=== PATIENT | female | born 1945 | race Caucasian/White ===

== ENCOUNTER → 2018-06-15 | Outpatient (CLI) | payer BC ==
[2018-06-15 16:50] LABS: Bilirubin, Urine Neg (Neg); Blood, Urine Neg (Neg); Glucose Qualitative, Urine Neg (Neg); Ketones, Urine Neg (Neg); Leukocyte Esterase, Urine 2+ (Neg); Nitrite, Urine Neg (Neg); Protein, Urine Neg (Neg); Specific Gravity, Urine 1.015 (1.003-1.022); Urobilinogen, Urine NORM (Normal)
[2018-06-15 17:12] LABS: Appearance, Urine Clear (Clear); Color, Urine Yellow (P-Yellow)
[2018-06-15 17:13] LABS: Red Blood Cells, Urine 0-2 /hpf (0-2); Transitional Epithelial Cells Few /hpf (0-Rare)
[2018-06-15 17:14] LABS: Bacteria Few /hpf; Renal Epithelial Few /hpf (0-Rare); Squamous Epithelial Cells Few /hpf (Few)
== END ==
LOC: LAB SHORT 13:30 → LAB 13:30
PROVIDERS: Family Medicine
DX: R82.99 Other abnormal findings in urine (principal)
CPT/HCPCS: 81001; 87086

== ENCOUNTER → 2019-02-09 | Outpatient (CLI) | payer BC, SELFPAY ==
[2019-02-09 12:05] LABS: Source, Urine Clean Catch
[2019-02-09 13:07] LABS: Bilirubin, Urine Neg (Neg); Blood, Urine 1+ (Neg); Glucose Qualitative, Urine Neg (Neg); Ketones, Urine Neg (Neg); Leukocyte Esterase, Urine Neg (Neg); Nitrite, Urine Neg (Neg); Protein, Urine 1+ (Neg); Specific Gravity, Urine 1.015 (1.003-1.022); Urobilinogen, Urine NORM (Normal)
[2019-02-09 13:32] LABS: Appearance, Urine Clear (Clear); Color, Urine Yellow (P-Yellow)
[2019-02-09 13:34] LABS: Bacteria Rare /hpf; Red Blood Cells, Urine Rare /hpf (0-2); Squamous Epithelial Cells Rare /hpf (Few); White Blood Cells, Urine Rare /hpf (0-5)
== END | disposition home or self-care (01) ==
LOC: LAB SHORT 12:03 → LAB 12:03
PROVIDERS: Obstetrics & Gynecology
DX: Z09 Encounter for follow-up examination after completed treatment for conditions other than malignant neoplasm (principal); Z87.440 Personal history of urinary (tract) infections
CPT/HCPCS: 81001

== ENCOUNTER → 2019-04-07 | Outpatient (CLI) | payer BC, SELFPAY ==
[2019-04-07 11:49] LABS: Source, Urine Clean Catch
[2019-04-07 12:32] LABS: Appearance, Urine Hazy (Clear); Bilirubin, Urine Neg (Neg); Blood, Urine 2+ (Neg); Color, Urine Yellow (P-Yellow); Glucose Qualitative, Urine Neg (Neg); Ketones, Urine Neg (Neg); Leukocyte Esterase, Urine 3+ (Neg); Nitrite, Urine Neg (Neg); Protein, Urine 1+ (Neg); Specific Gravity, Urine 1.015 (1.003-1.022); Urobilinogen, Urine NORM (Normal)
[2019-04-07 13:00] LABS: Bacteria Few /hpf; Squamous Epithelial Cells Few /hpf (Few); Transitional Epithelial Cells Few /hpf (0-Rare)
== END | disposition home or self-care (01) ==
LOC: LAB 11:30 → LAB SHORT 11:30
PROVIDERS: Obstetrics & Gynecology
DX: R30.0 Dysuria (principal)
CPT/HCPCS: 81001

== ENCOUNTER → 2020-03-20 | Outpatient (CLI) | payer BC, OTHER ==
[~2020-03-20] MED LIST: Jantoven5 MG PO; LOSARTAN POTASS25 M2 PO; Nitrofurantoin100 M1 PO; ROSUVASTATIN CAL5 MG PO; TENORMIN50 MG PO; WARF2.5 PO
== END ==
LOC: LAB SHORT 11:00 → LAB 11:00
DX: R30.9 Painful micturition, unspecified (principal)
CPT/HCPCS: 87077; 87086; 87186

== ENCOUNTER 2020-03-21 11:40 | Emergency (ER) | payer BC, OTHER ==
[~2020-03-21] VITALS: Ht 157.5 cm; Wt 77.1 kg
[2020-03-21] MEDS ORDERED: ROSUVASTATIN CAL5 MG PO (11:49)
[2020-03-21] MEDS ORDERED: Nitrofurantoin100 M1 PO (11:49)
[2020-03-21] MEDS ORDERED: LOSARTAN POTASS25 M2 PO (11:49)
[2020-03-21] MEDS ORDERED: Jantoven5 MG PO (11:50)
[2020-03-21] MEDS ORDERED: TENORMIN50 MG PO (11:50)
[2020-03-21 12:23] LABS: BASOPHILS ABSOLUTE AUTO 0.04 K/mm3 (0.00-0.23); BASOPHILS PERCENT AUTO 0 % (0-2); EOSINOPHILS ABSOLUTE AUTO 0.01 K/mm3 (0.00-0.68); EOSINOPHILS PERCENT AUTO 0 % (0-6); Hematocrit 43.8 % (33.0-51.0); Hemoglobin 14.5 g/dL (11.5-16.0); IMMATURE GRAN ABSOLUTE AUTO 0.16 K/mm3 (0.00-0.10); IMMATURE GRAN PERCENT AUTO 1 % (0-1); LYMPHOCYTES ABSOLUTE AUTO 0.18 K/mm3 (0.84-5.20); LYMPHOCYTES PERCENT AUTO 1 % (21-46); MONOCYTES ABSOLUTE AUTO 0.49 K/mm3 (0.16-1.47); MONOCYTES PERCENT AUTO 3 % (4-13); Mean Corpuscular HGB Conc 33.1 g/dL (31.5-36.5); Mean Corpuscular Volume 91 fL (80-100); NEUTROPHILS ABSOLUTE AUTO 14.95 K/mm3 (1.96-9.15); NEUTROPHILS PERCENT AUTO 94 % (41-73); Platelet Count 234 K/mm3 (150-400); RDW Coefficient Variation 12.7 % (11.7-14.2); RDW Standard Deviation 41.7 fL (35.1-46.3); Red Blood Cell Count 4.84 M/mm3 (3.80-5.20); White Blood Cell Count 15.83 K/mm3 (4.00-11.30)
[2020-03-21 12:45] LABS: Anion Gap 11 mmol/L (6-16); Blood Urea Nitrogen 15 mg/dL (8-24); CO2, Blood 23 mmol/L (21-32); Calcium, Blood 9.1 mg/dL (8.5-10.1); Chloride, Blood 106 mmol/L (98-108); Creatinine, Blood 0.84 mg/dL (0.40-1.00); Glomerular Filtration Rate >60 (60-); Glucose, Blood 206 mg/dL (70-99); Magnesium, Blood 1.5 mg/dL (1.6-2.4); Potassium, Blood 3.4 mmol/L (3.5-5.5); Sodium, Blood 140 mmol/L (136-145)
[2020-03-21] MEDS ORDERED: WARF2.5 PO (12:50)
== END 2020-03-21 13:20 | disposition home or self-care (01) ==
LOC: ER 11:40
PROVIDERS: Emergency Medicine
DX: R53.1 Weakness (principal); N39.0 Urinary tract infection, site not specified; E87.6 Hypokalemia; E83.42 Hypomagnesemia; I48.91 Unspecified atrial fibrillation; Z79.899 Other long term (current) drug therapy; Z79.01 Long term (current) use of anticoagulants
CPT/HCPCS: 36415; 80048; 83735; 85025; 93005; 93010; 96365; 99285-25; A9270; J0696

== ENCOUNTER 2021-04-10 05:54 | Emergency (ER) | payer BC, SELFPAY ==
[~2021-04-10] VITALS: Ht 157.5 cm; Wt 79.4 kg
[2021-04-10] MEDS ORDERED: LOSARTAN POT TAB 50M (06:09)
[2021-04-10] MEDS ORDERED: SPIRONOLACTONE25 MG PO (06:09)
[2021-04-10 06:43] LABS: BASOPHILS ABSOLUTE AUTO 0.08 K/mm3 (0.00-0.23); BASOPHILS PERCENT AUTO 1 % (0-2); EOSINOPHILS ABSOLUTE AUTO 0.16 K/mm3 (0.00-0.68); EOSINOPHILS PERCENT AUTO 1 % (0-6); Hematocrit 42.1 % (33.0-51.0); Hemoglobin 14.2 g/dL (11.5-16.0); IMMATURE GRAN ABSOLUTE AUTO 0.06 K/mm3 (0.00-0.10); IMMATURE GRAN PERCENT AUTO 1 % (0-1); LYMPHOCYTES ABSOLUTE AUTO 0.42 K/mm3 (0.84-5.20); LYMPHOCYTES PERCENT AUTO 3 % (21-46); MONOCYTES ABSOLUTE AUTO 0.76 K/mm3 (0.16-1.47); MONOCYTES PERCENT AUTO 6 % (4-13); Mean Corpuscular HGB 32.2 pg (26.0-34.0); Mean Corpuscular HGB Conc 33.7 g/dL (31.5-36.5); Mean Corpuscular Volume 96 fL (80-100); Mean Platelet Volume 8.9 fL (9.1-12.4); NEUTROPHILS ABSOLUTE AUTO 11.29 K/mm3 (1.96-9.15); NEUTROPHILS PERCENT AUTO 88 % (41-73); Platelet Count 235 K/mm3 (150-400); RDW Coefficient Variation 13.3 % (11.7-14.2); RDW Standard Deviation 47.3 fL (35.1-46.3); Red Blood Cell Count 4.41 M/mm3 (3.80-5.20); White Blood Cell Count 12.77 K/mm3 (4.00-11.30)
[2021-04-10 07:35] LABS: Alanine Aminotransfer (ALT/SGP 21 U/L (12-78); Albumin, Blood 3.5 g/dL (3.4-5.0); Alk Phos 52 U/L (50-136); Anion Gap 5 mmol/L (6-16); Aspartate Aminotrans (AST/SGOT 24 U/L (12-37); Bilirubin, Total 0.8 mg/dL (0.1-1.0); Blood Urea Nitrogen 25 mg/dL (8-24); Bun/Creatinine Ratio 31.9 (12.0-20.0); CO2, Blood 25 mmol/L (21-32); Chloride, Blood 106 mmol/L (98-108); Creatinine, Blood 0.78 mg/dL (0.40-1.00); Globulin, Blood 3.5 g/dL (2.2-4.0); Glomerular Filtration Rate >60 (60-); Glucose, Blood 111 mg/dL (70-99); Potassium, Blood 3.9 mmol/L (3.5-5.5); Sodium, Blood 136 mmol/L (136-145)
[2021-04-10 08:37] LABS: Source, Urine Clean Catch
[2021-04-10 09:04] LABS: Appearance, Urine Clear (Clear); Blood, Urine 2+ (Neg); Color, Urine Amber (P-Yellow); Glucose Qualitative, Urine Neg (Neg); Ketones, Urine Neg (Neg); Leukocyte Esterase, Urine 2+ (Neg); Nitrite, Urine Pos (Neg); Protein, Urine Neg (Neg); Urobilinogen, Urine 1+ (Normal)
[2021-04-10 09:14] LABS: Bilirubin, Urine 1+ (Neg)
[2021-04-10 09:15] LABS: Squamous Epithelial Cells Few /hpf (Few)
[2021-04-10 09:16] LABS: Bacteria Few /hpf
[2021-04-10] MEDS ORDERED: CEPH500 PO (09:29)
== END 2021-04-10 09:39 | disposition home or self-care (01) ==
LOC: ER 05:54
PROVIDERS: Emergency Medicine
DX: N39.0 Urinary tract infection, site not specified (principal); I48.91 Unspecified atrial fibrillation; Z88.2 Allergy status to sulfonamides; Z79.01 Long term (current) use of anticoagulants; Z79.899 Other long term (current) drug therapy
CPT/HCPCS: 80053; 81001; 85025; 87086; 99283; A9270; J7030

== ENCOUNTER → 2022-12-03 | Outpatient (CLI) | payer BC, OTHER ==
[~2022-12-03] MED LIST changes: +CEPH500 PO; +LOSARTAN POT TAB 50M; +SPIRONOLACTONE25 MG PO
== END | disposition home or self-care (01) ==
LOC: LAB SHORT 07:39 → LAB 07:39
DX: D04.62 Carcinoma in situ of skin of left upper limb, including shoulder (principal)
CPT/HCPCS: 88305

== ENCOUNTER 2023-03-04 19:23 | Emergency (ER) | payer BC ==
[~2023-03-04] VITALS: Ht 167.6 cm; Wt 83.9 kg
[2023-03-04 19:24] VITALS: BP 125/74
[2023-03-04 19:50] LABS: BASOPHILS ABSOLUTE AUTO 0.08 K/mm3 (0.00-0.23); BASOPHILS PERCENT AUTO 1 % (0-2); EOSINOPHILS ABSOLUTE AUTO 0.23 K/mm3 (0.00-0.68); EOSINOPHILS PERCENT AUTO 3 % (0-6); Hematocrit 40.1 % (33.0-51.0); Hemoglobin 13.6 g/dL (11.5-16.0); IMMATURE GRAN ABSOLUTE AUTO 0.03 K/mm3 (0.00-0.10); IMMATURE GRAN PERCENT AUTO 0 % (0-1); LYMPHOCYTES ABSOLUTE AUTO 2.74 K/mm3 (0.84-5.20); LYMPHOCYTES PERCENT AUTO 36 % (21-46); MONOCYTES ABSOLUTE AUTO 0.54 K/mm3 (0.16-1.47); MONOCYTES PERCENT AUTO 7 % (4-13); Mean Corpuscular HGB 31.3 pg (26.0-34.0); Mean Corpuscular HGB Conc 33.9 g/dL (31.5-36.5); Mean Corpuscular Volume 92 fL (80-100); Mean Platelet Volume 9.2 fL (9.1-12.4); NEUTROPHILS ABSOLUTE AUTO 3.92 K/mm3 (1.96-9.15); NEUTROPHILS PERCENT AUTO 52 % (41-73); Platelet Count 273 K/mm3 (150-400); RDW Coefficient Variation 12.6 % (11.7-14.2); Red Blood Cell Count 4.34 M/mm3 (3.80-5.20); White Blood Cell Count 7.54 K/mm3 (4.00-11.30)
[2023-03-04 20:04] LABS: International Normalized Ratio 1.86; Prothrombin Time Results 18.9 Sec (9.7-11.5)
[2023-03-04 20:23] LABS: Albumin, Blood 3.7 g/dL (3.4-5.0); Albumin/Globulin Ratio 1.1 (0.8-1.8); Bilirubin, Total 0.3 mg/dL (0.1-1.0); Bun/Creatinine Ratio 34.7 (12.0-20.0); Calcium, Blood 9.1 mg/dL (8.5-10.1); Creatinine, Blood 0.92 mg/dL (0.40-1.00); Globulin, Blood 3.3 g/dL (2.2-4.0); Potassium, Blood 3.9 mmol/L (3.5-5.5)
== END 2023-03-04 21:10 | disposition home or self-care (01) ==
LOC: ER 19:23
PROVIDERS: Emergency Medicine
DX: S01.01XA Laceration without foreign body of scalp, initial encounter (principal); I48.91 Unspecified atrial fibrillation; Z88.2 Allergy status to sulfonamides; Z79.01 Long term (current) use of anticoagulants; Z87.891 Personal history of nicotine dependence; W01.198A Fall on same level from slipping, tripping and stumbling with subsequent striking against other object, initial encounter
CPT/HCPCS: 12002; 70450; 80053; 85025; 85610; 99284-25

== ENCOUNTER → 2023-07-15 | Outpatient (CLI) | payer BC | END | disposition home or self-care (01) | LOC: LAB SHORT 12:05 → PLD 12:05 | DX: K09.1 Developmental (nonodontogenic) cysts of oral region (principal) | CPT/HCPCS: 88304 ==

== ENCOUNTER → 2023-10-31 | Outpatient (CLI) | payer BC | END | disposition home or self-care (01) | LOC: LAB 12:32 → LAB SHORT 12:32 | DX: N39.0 Urinary tract infection, site not specified (principal) | CPT/HCPCS: 87077; 87086; 87186 ==

== ENCOUNTER → 2023-12-12 | Outpatient (CLI) | payer BC | LOC: LAB 13:41 → LAB SHORT 13:41 | DX: N39.0 Urinary tract infection, site not specified (principal) | CPT/HCPCS: 87077; 87086; 87186 ==

== ENCOUNTER → 2024-08-01 | Outpatient (CLI) | payer BC | END | disposition home or self-care (01) | LOC: LAB 15:40 → LAB SHORT 15:40 | DX: N39.0 Urinary tract infection, site not specified (principal) | CPT/HCPCS: 87077; 87086; 87186 ==

== ENCOUNTER → 2024-08-17 | Outpatient (CLI) | payer BC | END | disposition home or self-care (01) | LOC: LAB 12:31 → LAB SHORT 12:31 | DX: N39.0 Urinary tract infection, site not specified (principal) | CPT/HCPCS: 87077; 87086; 87186 ==

== ENCOUNTER 2024-09-06 08:14 | Observation (INO) | payer BC ==
[~2024-09-06] VITALS: Ht 167.6 cm; Wt 78.0 kg
[~2024-09-06 08:14] MED LIST changes: +LOSA50 PO; -LOSARTAN POTASS25 M2 PO; +SPIR50 PO; -SPIRONOLACTONE25 MG PO
[2024-09-06 09:01] LABS: BASOPHILS ABSOLUTE AUTO 0.07 K/mm3 (0.00-0.23); BASOPHILS PERCENT AUTO 1 % (0-2); EOSINOPHILS ABSOLUTE AUTO 0.21 K/mm3 (0.00-0.68); EOSINOPHILS PERCENT AUTO 3 % (0-6); Hematocrit 35.2 % (33.0-51.0); Hemoglobin 11.5 g/dL (11.5-16.0); IMMATURE GRAN ABSOLUTE AUTO 0.06 K/mm3 (0.00-0.10); IMMATURE GRAN PERCENT AUTO 1 % (0-1); LYMPHOCYTES ABSOLUTE AUTO 1.48 K/mm3 (0.84-5.20); LYMPHOCYTES PERCENT AUTO 20 % (21-46); MONOCYTES PERCENT AUTO 9 % (4-13); Mean Corpuscular HGB 31.6 pg (26.0-34.0); Mean Corpuscular HGB Conc 32.7 g/dL (31.5-36.5); Mean Corpuscular Volume 97 fL (80-100); Mean Platelet Volume 9.1 fL (9.1-12.4); NEUTROPHILS ABSOLUTE AUTO 5.04 K/mm3 (1.96-9.15); NEUTROPHILS PERCENT AUTO 67 % (41-73); Platelet Count 275 K/mm3 (150-400); RDW Coefficient Variation 13.2 % (11.7-14.2); RDW Standard Deviation 47.4 fL (35.1-46.3); Red Blood Cell Count 3.64 M/mm3 (3.80-5.20); White Blood Cell Count 7.56 K/mm3 (4.00-11.30)
[2024-09-06 09:16] LABS: Albumin/Globulin Ratio 0.9 (0.8-1.8); Bilirubin, Total 0.6 mg/dL (0.1-1.0); Bun/Creatinine Ratio 22.3 (12.0-20.0); Calcium, Blood 8.8 mg/dL (8.5-10.1); Creatinine, Blood 0.99 mg/dL (0.40-1.00); Globulin, Blood 3.5 g/dL (2.2-4.0); Magnesium, Blood 1.5 mg/dL (1.6-2.4); Potassium, Blood 4.4 mmol/L (3.5-5.5); Total Protein, Blood 6.5 g/dL (6.4-8.2)
[2024-09-06 09:17] LABS: Source, Urine Clean Catch
[2024-09-06 09:24] LABS: International Normalized Ratio 1.29; Prothrombin Time Results 13.5 Sec (9.7-11.5)
[2024-09-06 09:25] LABS: Appearance, Urine Hazy (Clear); Bilirubin, Urine Neg (Neg); Blood, Urine 2+ (Neg); Color, Urine Yellow (P-Yellow); Glucose Qualitative, Urine Neg (Neg); Ketones, Urine Neg (Neg); Leukocyte Esterase, Urine 3+ (Neg); Nitrite, Urine Pos (Neg); Protein, Urine 2+ (Neg); Urobilinogen, Urine NORM (Normal)
[2024-09-06 09:33] LABS: Bacteria Mod /hpf; Squamous Epithelial Cells Few /hpf (Few); White Blood Cells, Urine TNTC /hpf (0-5)
[2024-09-06] MEDS ORDERED: CefTRIAXone Sodium 1,000 MG in NS 100 ML IV ONE (09:40)
[2024-09-06] MEDS ORDERED: Magnesium Sulf 2 GM/Water 50ML 50 ML IV ONE (10:45)
[2024-09-06] MEDS ORDERED: Heparin Sodium,Porcine/0.5 NS 500 ML IV SCH (11:30)
[2024-09-06] MEDS ORDERED: FLU VACC TS2024-25(6MOS UP)/PF 45 MCG/0.5 ML SYRINGE IM ONE (11:45)
[2024-09-06] MEDS ORDERED: Atorvastatin 40 MG Tab PO SCH (12:00)
[2024-09-06 12:16] LABS: Anti-Xa UFH, PHA Monitoring <0.10 IU/mL
[2024-09-06 13:48] LABS: CHOL/HDL RATIO 3.2; Cholesterol 155 mg/dL (50-200); HDL Cholesterol 49 mg/dL (>39); LDL/HDL RATIO 1.7; Low Density Lipoprotein Chol 81 mg/dL (0-110); Triglycerides 124 mg/dL (30-160); Very Low Density Lipoprot Chol 24 mg/dL (6-32)
[2024-09-06 15:26] VITALS: BP 140/89
[2024-09-06] MEDS ORDERED: CYMBALTA30 M2 PO (15:37)
--- NOTE | 2024-09-06 17:03 | NUR ---
SHIFT SUMMARY; PATIENT LATE AFTERNOON ADMIT FROM ER. 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 RIGHT SIDE WEAKNESS SEVERE APHASIA. RESOLVING WHILE IN CT SCAN. ARELI PAITENT SHOWS EUQAL GARDE MANAGER BILATERALLY AND NEURO INTACT FACIAL AND FEET. PAITENT AO X 4. NEICE AT BEDSIDE. VITAL SIGNS SHOW PATIENT HYPERTENSIVE AT 148 SYSTOLIC. HR 72 AFIB PER TELE. SHE IS NOT FEBRILE. LUNGS CLEAR TO AUSCULTATION AND SATS 97% ON ROOM AIR. PATIENT WAITING FOR MRI, ARELI NPO. PUREWICK IN PLACE. CALL LIGHT IN REACH. NADN. PATIENT TO CALL FOR ASSIST. WILL CONTINUE TO MONITOR THIS PATIENT CLOSELY UNTIL REPORT AND HAND OFF TO NOC SHIFT RN.
[2024-09-06] MEDS ORDERED: Lactobacil 2-S.Thermo-Bifido 1 1 Cap PO SCH (21:00)
[2024-09-06 21:41] VITALS: BP 149/105
[2024-09-06 21:43] VITALS: BP 143/95
--- NOTE | 2024-09-06 22:00 | NUR ---
2023 PT RETURNED FROM IMAGING. PT REPORTS A HEADACHE OF 3/10, NO MEDS FOR THIS ORDERED AT THIS TIME BUT WILL SPEAK WITH THE DR WHEN ANOTHER STAFF CALLS AND ASK FOR SOMETHING. PT IS AWARE. TELE IS AFIB AT 97. PUREWICK IS IN PLACE, CLEAR YELLOW URINE. NO OTHER APPARENT SIGNS OF DISTRESS. CALL LIGHT IS IN REACH.
--- NOTE | 2024-09-06 22:38 | NUR ---
2200 PT LYING IN BED, EYES CLOSED, APPEARS TO BE RESTING. BREATHING IS EVEN, UNLABORED. NO APPARENT SIGNS OF DISTRESS. CALL LIGHT IS IN REACH.
[2024-09-07 00:16] LABS: BASOPHILS PERCENT AUTO 1 % (0-2); EOSINOPHILS ABSOLUTE AUTO 0.17 K/mm3 (0.00-0.68); EOSINOPHILS PERCENT AUTO 2 % (0-6); Hematocrit 34.5 % (33.0-51.0); Hemoglobin 11.4 g/dL (11.5-16.0); IMMATURE GRAN ABSOLUTE AUTO 0.04 K/mm3 (0.00-0.10); IMMATURE GRAN PERCENT AUTO 1 % (0-1); LYMPHOCYTES ABSOLUTE AUTO 1.88 K/mm3 (0.84-5.20); LYMPHOCYTES PERCENT AUTO 26 % (21-46); MONOCYTES ABSOLUTE AUTO 0.72 K/mm3 (0.16-1.47); MONOCYTES PERCENT AUTO 10 % (4-13); Mean Corpuscular HGB 31.4 pg (26.0-34.0); Mean Corpuscular Volume 95 fL (80-100); Mean Platelet Volume 8.9 fL (9.1-12.4); NEUTROPHILS ABSOLUTE AUTO 4.46 K/mm3 (1.96-9.15); NEUTROPHILS PERCENT AUTO 61 % (41-73); Platelet Count 255 K/mm3 (150-400); RDW Coefficient Variation 13.2 % (11.7-14.2); RDW Standard Deviation 46.4 fL (35.1-46.3); Red Blood Cell Count 3.63 M/mm3 (3.80-5.20); White Blood Cell Count 7.37 K/mm3 (4.00-11.30)
[2024-09-07 00:34] LABS: Albumin, Blood 2.9 g/dL (3.4-5.0); Albumin/Globulin Ratio 0.8 (0.8-1.8); Bilirubin, Total 0.6 mg/dL (0.1-1.0); Bun/Creatinine Ratio 22.9 (12.0-20.0); Calcium, Blood 8.8 mg/dL (8.5-10.1); Creatinine, Blood 0.83 mg/dL (0.40-1.00); Globulin, Blood 3.7 g/dL (2.2-4.0); Magnesium, Blood 1.9 mg/dL (1.6-2.4); Potassium, Blood 4.1 mmol/L (3.5-5.5); Total Protein, Blood 6.6 g/dL (6.4-8.2)
--- NOTE | 2024-09-07 00:38 | NUR ---
0000 PT LYING IN BED, EYES CLOSED, APPEARS TO BE RESTING. WAKES EASILY TO VERBAL STIMULI. NO APPARENT SIGNS OF DISTRESS. DENIES NEED FOR ANYTHING AT THIS TIME. CALL LIGHT IS IN REACH.
[2024-09-07] MEDS ORDERED: Dose Adjust by Pharmacy XX STA ×2 (00:43→07:29)
[2024-09-07] MEDS ORDERED: Acetaminophen 325 MG TABLET PO PRN (02:05)
--- NOTE | 2024-09-07 02:24 | NUR ---
PT LYING IN BED, EYES CLOSED, APPEARS TO BE RESTING. BREATHING IS EVEN, UNLABORED. NO APPARENT SIGNS OF DISTRESS. CALL LIGHT IS IN REACH.
[2024-09-07 03:50] VITALS: BP 136/83
--- NOTE | 2024-09-07 05:27 | NUR ---
PT IS AAO X 4, ON RA. TELE AFIB 90'S. PT REPORTS HEADACHE OF 3/10, GOT TYLENOL ORDERED BUT PT WAS ASLEEP SO IT HAS NOT BEEN GIVEN YET. PUREWICK IN PLACE, CLEAR YELLOW URINE.
--- NOTE | 2024-09-07 05:27 | NUR ---
PT LYING IN BED, EYES CLOSED, APPEARS TO BE RESTING. WAKES EASILY TO VERBAL STIMULI. NO APPARENT SIGNS OF DISTRESS. CALL LIGHT IS IN REACH.
--- NOTE | 2024-09-07 05:44 | NUR ---
PT LYING IN BED, EYES CLOSED, APPEARS TO BE RESTING. BREATHING IS EVEN, UNLABORED. NO APPARENT SIGNS OF DISTRESS. CALL LIGHT IS IN REACH. NO OTHER CHANGES THIS SHIFT.
[2024-09-07 07:12] VITALS: BP 137/89
[2024-09-07] MEDS ORDERED: CefTRIAXone Sodium 1,000 MG in NS 100 ML IV SCH (09:00)
[2024-09-07] MEDS ORDERED: Magnesium Sulf 2 GM/Water 50ML 50 ML IV ONE (10:35)
[2024-09-07] MEDS ORDERED: NS 250 ML IV PRN (11:15)
[2024-09-07 15:28] VITALS: BP 113/75
[2024-09-07] MEDS ORDERED: METO50ER PO (15:28)
--- NOTE | 2024-09-07 16:30 | NUR ---
SHIFT SUMMARY; HEPARIN DRIP AT 12UNITS/KG/HR OR 16.3ML. NEW BAG AT 1630 VERIFIED WITH RAJ RN. PATIENT HAS SLIGHT APHASIA NOTED DURING DAY. SEEMS WORSE THIS EVENING. FAMILY AT BEDSIDE NOW. SHE IS INDEPENDANT IN ROOM AMBULATES TO AND FROM BATHROOM WITHOUT ASSIST ONLY NEEDING HELP WITH IV POLE/HEPARIN DRIP. VITAL SIGNS ARE STABLE AND WNL. SHE IS NOT FEBRILE. LUNGS ARE CLEAR TO AUSCULTATION. SHE DENIES ANY CP OR PRESSURE. WILL REMAIN AVAILABLE FOR THIS PATIENT FOR ANY WANTS OR NEEDS THAT COME UP PRIOR TO REPORT AND HAND OFF TO NOC SHIFT RN.
[2024-09-07 19:22] VITALS: BP 132/88
[2024-09-08 03:57] VITALS: BP 130/90
--- NOTE | 2024-09-08 04:14 | NUR ---
SHIFT SUMMARY, PATIENT UP OFTEN TO BR, HEPARIN DRIP MAINTAINED ALL SHIFT.NO CHANGE IN RATE TELE AFIB. @ 88. BUT TELE DID CALL ME ONCE TO REPORT FOR A SHORT EPISODE OF AFIB WITH RVR IN THE 150'S. SHE WAS UP TO THE BR AT THAT TIME. DENIED CP OR SOB. SCD'S APPLIED WHILE IN BED.
[2024-09-08 04:54] LABS: BASOPHILS ABSOLUTE AUTO 0.07 K/mm3 (0.00-0.23); BASOPHILS PERCENT AUTO 1 % (0-2); EOSINOPHILS ABSOLUTE AUTO 0.21 K/mm3 (0.00-0.68); EOSINOPHILS PERCENT AUTO 3 % (0-6); Hematocrit 34.9 % (33.0-51.0); Hemoglobin 11.8 g/dL (11.5-16.0); IMMATURE GRAN ABSOLUTE AUTO 0.05 K/mm3 (0.00-0.10); IMMATURE GRAN PERCENT AUTO 1 % (0-1); LYMPHOCYTES ABSOLUTE AUTO 1.43 K/mm3 (0.84-5.20); LYMPHOCYTES PERCENT AUTO 23 % (21-46); MONOCYTES ABSOLUTE AUTO 0.73 K/mm3 (0.16-1.47); MONOCYTES PERCENT AUTO 12 % (4-13); Mean Corpuscular HGB 31.9 pg (26.0-34.0); Mean Corpuscular HGB Conc 33.8 g/dL (31.5-36.5); Mean Corpuscular Volume 94 fL (80-100); Mean Platelet Volume 9.3 fL (9.1-12.4); NEUTROPHILS PERCENT AUTO 60 % (41-73); Platelet Count 265 K/mm3 (150-400); RDW Coefficient Variation 13.3 % (11.7-14.2); RDW Standard Deviation 45.7 fL (35.1-46.3); White Blood Cell Count 6.19 K/mm3 (4.00-11.30)
[2024-09-08] MEDS ORDERED: Dose Adjust by Pharmacy XX STA (05:34)
[2024-09-08 07:37] VITALS: BP 123/82
[2024-09-08] MEDS ORDERED: Sennosides 8.6 MG Tab PO PRN (12:00)
[2024-09-08] MEDS ORDERED: Dabigatran Etexilate Mesylate 150 MG CAPSULE PO ONE (14:05)
[2024-09-08] MEDS ORDERED: DABI150C PO (14:26)
[2024-09-08] MEDS ORDERED: VISBIOME 112.51 EACH PO (14:26)
[2024-09-08] MEDS ORDERED: CEFD300 PO (14:27)
--- NOTE | 2024-09-08 16:47 | NUR ---
DISHCARGE NOTE PATIENT A/OX4, ABLE TO MAKE NEEDS KNOWN. PLEASANT AND COOPERATIVE WITH CARE. TELEMETRY REMOVED AND PIVs REMOVED PRIOR TO DISCHARGE. DISCHARGE INSTRUCTIONS GIVEN TO PATIENT REGARDING MEDICATION CHANGES AND FOLLOW UP APPOINTMENT. MD MADE CHANGES TO MEDICATION LIST POST DISCHARGE, PATIENT WAS INFORMED VIA TELEPHONE REGARDING CHANGES. HEPARIN GTT STOPPED PRIOR TO DISCHARGE AND GIVEN ORAL ANTICOAGULANT PER JAN. NO OTHER CONCERNS, PATIENT ASSISTED TO FRIEND'S VEHICLE WITH ALL BELONGINGS IN HAND.
[2024-09-08] MEDS ORDERED: Cefdinir 300 MG Cap PO SCH (21:00)
[2024-09-08] MEDS ORDERED: Dabigatran Etexilate Mesylate 150 MG CAPSULE PO SCH (21:00)
[2024-09-09] MEDS ORDERED: Atorvastatin 40 MG Tab PO SCH (09:00)
== END 2024-09-08 15:38 | disposition home or self-care (01) ==
LOC: ER 08:14 → MEDS 08:15 → ERHOLD 08:15 → MEDS 15:19
PROVIDERS: Emergency Medicine; Family Medicine; ADMIT Family Medicine
DX: I63.9 Cerebral infarction, unspecified (principal); N39.0 Urinary tract infection, site not specified; E83.42 Hypomagnesemia; I48.91 Unspecified atrial fibrillation; I10 Essential (primary) hypertension; E78.5 Hyperlipidemia, unspecified; K60.30 Anal fistula, unspecified; Z66 Do not resuscitate; Z88.2 Allergy status to sulfonamides; Z79.01 Long term (current) use of anticoagulants; Z79.899 Other long term (current) drug therapy
CPT/HCPCS: 36415; 70450; 70496; 70498; 70551; 71045; 80053; 80061; 81001; 83036; 83605; 83735; 84443; 85025; 85520; 85610; 85730; 87040; 87077; 87086; 87186; 92610; 93005; 93010; 93306; 96365; 96365-59; 96366; 96367; 96367-59; 96368; 97116; 97161; 97165; 97530; 99285-25; A9270; G0378; J0696; J1644; J3475; J7050; Q9967

== ENCOUNTER → 2024-10-08 | Outpatient (CLI) | payer BC ==
[~2024-10-08] MED LIST changes: +CEFD300 PO; +CYMBALTA30 M2 PO; +DABI150C PO; +METO50ER PO; +VISBIOME 112.51 EACH PO
== END ==
LOC: LAB 11:15 → LAB SHORT 11:15
DX: N39.0 Urinary tract infection, site not specified (principal); R31.9 Hematuria, unspecified
CPT/HCPCS: 87077; 87086; 87186

== ENCOUNTER 2025-03-22 08:36 | Day surgery (SDC) | payer BC ==
[~2025-03-22] VITALS: Ht 157.5 cm; Wt 76.5 kg
[2025-03-23 07:19] VITALS: BP 119/73
== END 2025-03-23 09:10 | disposition home or self-care (01) ==
LOC: ORSCMMR 08:36 → ORD 10:00 → SURS 13:47 → ORSCMMR 03-23 09:10
PROC: 0SRC0JA Replacement of Right Knee Joint with Synthetic Substitute, Uncemented, Open Approach (ICD-10-PCS; principal; 2025-03-22)
DX: M17.11 Unilateral primary osteoarthritis, right knee (principal); I10 Essential (primary) hypertension; I48.91 Unspecified atrial fibrillation; Z87.891 Personal history of nicotine dependence; Z86.73 Personal history of transient ischemic attack (TIA), and cerebral infarction without residual deficits; Z79.899 Other long term (current) drug therapy

== ENCOUNTER 2025-07-14 12:40 | Day surgery (SDC) | payer BC ==
[~2025-07-14] VITALS: Ht 154.9 cm; Wt 76.7 kg
[~2025-07-14 12:40] MED LIST changes: +ARTHRITIS PAIN150 GM TOP; +METO100ER PO; -METO50ER PO; +XARELTO15 MG PO
[2025-07-14 13:03] VITALS: BP 173/95
--- NOTE | 2025-07-14 13:09 | NUR ---
Pt to Day Surgery via WC. Pt states she ambulates w/ cane or WC only for longer distances. Pt able to stand on scale for accurate height/weight. History, Chart, Medications and Allergies reviewed before start of procedure. Patient confirms NPO status and agrees with scheduled surgery. Pre-Op teaching done. Pt verbalizes understanding. Patient States Post-Procedure ride home has been arranged.
--- NOTE | 2025-07-14 13:23 | NUR ---
Pt difficult IV start, multiple RN attempt.
--- NOTE | 2025-07-14 13:45 | NUR ---
07/14/25 [id number] Krystian Eugene History, Chart, Medications and Allergies reviewed before start of procedure.MONITOR INTACT WITH CONTINUOUS PULSE OXIMETRY, CONTINUOUS END TITAL CO2, 3-LEAD EKG AND INTERMITTENT BLOOD PRESSURE.3-LEAD EKG REVIEWED WITH PHYSICIAN PRIOR TO START OF PROCEDURE.O2 VIA POM INTACT THROUGHOUT SEDATION/PROCEDURE.See Anesthesia record.
[2025-07-14 14:31] VITALS: BP 131/82
[2025-07-14 14:44] VITALS: BP 154/83
--- NOTE | 2025-07-14 14:54 | NUR ---
Patient up to Ambulate independently. Gait steady. Discharge instructions reviewed with patient. Patient verbalizes understanding. Copy given to patient to take home. Patient States Post-Procedure ride home has been arranged. Discharged via wheelchair to private car for ride home. PT TOLERATING PO, REPORTS READY TO GO HOME. PT DENIES PAIN.
== END 2025-07-14 14:54 | disposition home or self-care (01) ==
LOC: ORSCMMR 12:40 → ORD 14:00 → ORSCMMR 14:54
DX: K92.1 Melena (principal); D64.9 Anemia, unspecified; K63.5 Polyp of colon; K57.30 Diverticulosis of large intestine without perforation or abscess without bleeding; K64.8 Other hemorrhoids; K64.4 Residual hemorrhoidal skin tags; I48.91 Unspecified atrial fibrillation; Z79.01 Long term (current) use of anticoagulants; I10 Essential (primary) hypertension; E66.9 Obesity, unspecified; Z68.31 Body mass index [BMI] 31.0-31.9, adult; Z79.899 Other long term (current) drug therapy
CPT/HCPCS: 88305; J2704; J7120

== ENCOUNTER → 2025-10-13 | Outpatient (CLI) | payer BC | LOC: LAB 12:24 → LAB SHORT 12:24 | DX: R30.0 Dysuria (principal) | CPT/HCPCS: 87077; 87086; 87186 ==

== ENCOUNTER → 2025-11-07 | Outpatient (CLI) | payer BC | END | disposition home or self-care (01) | LOC: LAB SHORT 08:58 → LAB 08:58 | DX: N39.0 Urinary tract infection, site not specified (principal); R31.9 Hematuria, unspecified | CPT/HCPCS: 87086; 87147 ==